=== PATIENT | female | born 1965 | race Caucasian/White ===

== ENCOUNTER 2020-03-10 13:47 | Emergency (ER) | payer MEDICAID ==
[2020-03-10 13:57] VITALS: BP 134/65
--- NOTE | 2020-03-10 14:19 | ED Physician Documentation ---
PD HPI HEENT - Stated complaint Stated Complaint: RT EAR/JAW PX - Chief complaint Chief Complaint: Heent - History obtained from History obtained from: Patient - Additional information Additional information: A couple of days ago she developed what she thought was a pimple on the right side of the forehead. She popped it and it was quite painful at that time but minimal pain now. Now she has pain and swelling in the right preauricular area and submandibular area. Pain radiates into the ear and she wonders if it was related to dirty earplugs. Review of Systems Constitutional: reports: Reviewed and negative Eyes: reports: Reviewed and negative Ears: reports: Reviewed and negative Nose: reports: Reviewed and negative PD PAST MEDICAL HISTORY - Present Medications Home Medications: Ambulatory Orders Medication Instructions Recorded Confirmed Valacyclovir HCl [Valtrex] 1,000 mg PO TID #30 tablet 03/10/20 - Allergies Allergies/Adverse Reactions: Allergies Allergy/AdvReac Type Severity Reaction Status Date / Time No Known Drug Allergies Allergy Verified 03/10/20 13:56 PD ED PE NORMAL - Vitals Vital signs reviewed: Yes - General General: Alert and oriented X 3, No acute distress - HEENT HEENT: Other (There is a single vesicular lesion on the right side of the forehead at the level of the hairline. No facial cellulitis. She has some tenderness over the preauricular and submandibular areas, but no palpable lymphadenopathy. TM and canal are normal.) - Neck Neck: Supple, no meningeal sign, No bony TTP - Neuro Neuro: Alert and oriented X 3, Normal speech - Psych Psych: Normal mood, Normal affect Results - Vitals Vitals: Vital Signs - 24 hr 03/10/20 13:54 Temperature 36.2 C L Heart Rate 73 Respiratory 14 Rate Blood Pressure 134/65 H O2 Saturation 100 Oxygen O2 Source Room air PD MEDICAL DECISION MAKING - ED course ED course: She presents with mild right-sided facial pain and pain likely due to lymphadenopathy. There is no facial cellulitis and I suspect it is a very mild case of shingles. She did not want to take steroids. Departure - Departure Disposition: Home, Self Care Clinical Impression: Shingles Qualifiers: Herpes zoster complications: without complications Qualified Code(s): B02.9 - Zoster without complications Condition: Good Record reviewed to determine appropriate education?: Yes Instructions: ED Shingles Prescriptions: Valacyclovir HCl [Valtrex] 1,000 mg PO TID #30 tablet Comments: As discussed, it looks like you have a mild case of shingles on the right side of the forehead. Return if worsening, if you develop any visual problems, or any lesions on the tip of your nose. Follow-up with your doctor midweek if not better.
== END 2020-03-10 14:28 | disposition home or self-care (01) ==
LOC: ED 13:47
DX: B02.9 Zoster without complications (principal)
CPT/HCPCS: 99283

== ENCOUNTER 2020-04-05 20:28 | Outpatient (CLI) | payer MEDICAID | END 2020-04-05 20:29 | disposition home or self-care (01) | LOC: COV 20:28 | PROVIDERS: ATTEND Family Medicine | DX: Z20.822 Contact with and (suspected) exposure to COVID-19 (principal) ==